=== PATIENT | male | born 1980 | race Caucasian/White ===

== ENCOUNTER 2019-08-15 08:03 | Emergency (ER) | payer OTHER ==
[2019-08-15] MEDS ORDERED: Ondansetron PF 4 MG/2 ML Vial ONE (08:30)
[2019-08-15 08:54] LABS: #Eosinphils 0.2 thou/uL (0.0-0.7); #Lymphocytes 1.5 thou/uL (1.20-3.40); #Monocytes 0.6 thou/uL (0.11-0.59); #Neutrophils 4.4 thou/uL (1.40-6.50); %Basophils 0.2 % (0.0-1.0); %Eosinophils 3.4 % (0.0-10.0); %Monocytes 8.2 % (0.0-10.0); %Neutrophils 66.2 % (42.0-75.0); Hemoglobin 16.2 g/dL (14.0-18.0); Mean Corpuscular HGB CONC 34.3 g/dL (32.0-36.0); Mean Corpuscular Hemoglobin 30.7 pg (27.0-31.0); Mean Corpuscular Volume 89.4 fL (78.0-98.0); Mean Platelet Volume 7.3 fL (7.4-10.4); Platelet Count 266 thou/uL (130-400); Red Blood Cell (RBC) Count 5.29 mill/uL (4.70-6.10); White Blood Cell (WBC) Count 6.7 thou/uL (4.8-10.8)
[2019-08-15 09:03] LABS: ALT (SGPT) 18 U/L (8-55); AST (SGOT) 21 U/L (5-34); Albumin 4.4 g/dL (3.5-5.0); Alkaline Phosphatase 87 U/L (40-110); Anion Gap 10 mmol/L (10-20); BUN (Urea Nitrogen) 8 mg/dL (8.9-20.6); Bilirubin, Total 0.9 mg/dL (0.2-1.2); Calc. Creatinine Clearance 0 mL/min (70-130); Calcium 9.8 mg/dL (7.8-10.44); Carbon Dioxide 30 mmol/L (22-29); Chloride 104 mmol/L (98-107); Estimated GFR-MDRD 64; Globulin 2.8 g/dL (2.4-3.5); Glucose 95 mg/dL (70-105); Lipase 18 U/L (8-78); Potassium 4.8 mmol/L (3.5-5.1); Protein, Total 7.2 g/dL (6.0-8.3); Sodium 139 mmol/L (136-145)
[2019-08-15 10:17] LABS: Bilirubin Negative (Negative); Blood, Urine Negative (Negative); Clarity Clear (Clear); Glucose, Urine (Dipstick) Normal (Negative); Leukocyte Negative Leu/uL (Negative); Nitrite Negative (Negative); Protein, Urine (Dipstick) Negative (Neg-Trace); Urobilinogen Normal mg/dL (Less than 2)
[2019-08-15] MEDS ORDERED: Iopamidol-370 76% 500 ML 1 ML ONE (10:17)
[2019-08-15] MEDS ORDERED: Iopamidol 370 76% 50 ML VIAL FS ONE (10:17)
--- NOTE | 2019-08-15 11:15 | CT ---
CT ABDOMEN AND PELVIS WITH IV CONTRAST: Date: 08/15/2019 INDICATION: History of right lower quadrant and right inguinal abdominal pain that has been causing the patient t o have difficulty sleeping. The patient has had constipation with decreased appetite. The patient rep orts no fever or history of renal stones. COMPARISON: None. FINDINGS: ABDOMEN: Lung bases are clear. There is a tiny suspected cyst within the anterior aspect of the right hepatic lobe. Pancreas and adrenal glands are normal appearing. No definite focal renal lesion is evident. No hydro nephrosis is demonstrated. Spleen appears within normal limits. No free fluid or enlarged lymph nodes are evident. There is incidental note of a circumaortic left renal vein. PELVIS: There is a normal appendix in the right lower quadrant. The bladder, rectum, and perirectal soft tissues are normal appearing. The small and large bowel are of normal caliber without overt evidence of inflammatory change. No definite pathologically enlarged lymph nodes are evident. There is no appreciable free fluid in th e pelvis. No acute osseous abnormality is evident. IMPRESSION: 1. No CT explanation for the patient's right lower quadrant and right inguinal abdominal pain. No pa thologically enlarged lymph nodes are evident. 2. Tiny right hepatic lobe cyst. 3. Normal appendix. POS: [facility]
== END 2019-08-15 11:42 | disposition home or self-care (01) ==
LOC: ERS 08:03
DX: R10.31 Right lower quadrant pain (principal); R10.33 Periumbilical pain; K59.00 Constipation, unspecified
CPT/HCPCS: 74177; 80053; 81003; 83690; 85025; 96361; 96374; J2405; Q9967